=== PATIENT | male | born 1990 | race Caucasian/White ===

== ENCOUNTER 2022-05-23 08:56 | Emergency (ER) | payer BC, SELFPAY ==
[2022-05-23 09:03] VITALS: BP 137/67; PULSE 74; RESP 20; TEMP 36.7; O2SAT 98
--- NOTE | 2022-05-23 09:15 | DI.RAD_ITS ---
Exam(s) XR RIBS RT W PA LAT CHEST EXAM: XR RIBS RT W PA LAT CHEST CLINICAL HISTORY: right lower rib injury TECHNIQUE: COMPARISON: No exams were available for comparison FINDINGS: PA and lateral chest and 4 additional views of the right ribs were obtained. The heart is not enlarg ed. The lungs are clear. No pleural effusion. No pneumothorax. No rib fracture. IMPRESSION: Negative examination of the chest and right ribs. RADIATION DOSE DELIVERED: Total DLP
--- NOTE | 2022-05-23 09:20 | W.ED.GENAD ---
Discharge Plan Disposition Patient Disposition: HOME Condition: Stable Discharge Details Clinical Impression: Rib pain on right side Primary Care Provider: Unknown,Unknown ED Provider: Landen Brambila Home Meds and New Rx's Prescriptions: New diclofenac sodium 50 mg tablet,delayed release (DR/EC) 50 mg PO TID PRNQty: 15 0RF Held naproxen sodium [Aleve] 220 mg Capsule 440 mg PO PRN PRN Hold Instructions: until the prescription medication is finished Discharge Instructions Instructions: Chest Wall Pain (ED) Additional Instructions: If you have any new or significant worsening of symptoms please feel free to return the emergency department. Otherwise if you are not seeing signs of improvement in the next 1 to 2 weeks please follow-up with your primary care provider for reassessment. Referrals: Primary Care Provider [Outside] Medical Decision Making Patient presenting the emergency department for chief complaint of right rib pain. He states he was rolling over in bed and felt a pop in his right lower ribs. Since then he has had significant pain and discomfort to the right lower ribs. Patient denies any other symptoms beyond pain specifically exacerbated by movement. Physical exam is positive for tenderness to the 10th and 11th ribs on the right side otherwise exam is unremarkable. We will perform periodic imaging and place lidocaine patch on patient. Reviewed radiological imaging and radiologist interpretation of negative chest x-ray findings. Discussed with patient pain management control along with return and follow-up precautions. After discussion of diagnosis and plan of care patient has no further needs, questions, or concerns and states clear understanding to return to the emergency department for any worsening symptoms. This documentation was generated using [employer] dictation system, please disregard any oddities of phrase or misspellings. Imaging Data Radiologic Study: Imaging: X-Ray Radiologist's impression: FINDINGS: PA and lateral chest and 4 additional views of the right ribs were obtained. The heart is not enlarged. The lungs are clear. No pleural effusion. No pneumothorax. No rib fracture. IMPRESSION: Negative examination of the chest and right ribs. HPI General Mode of arrival: ambulatory. Date/Time Provider Initiated Documentation: 05/23/22 09:01. Limitations to Documentation: no limitations. Information obtained by: patient and RN notes reviewed. History of Present Illness 31 year old M presents to the emergency department with the chief complaint of Right rib pain, described as moderate, with intensity rated at 5. Quality is described as aching and sharp, and is localized to the chest and right. Patient reports no radiation. Patient started experiencing this day(s) (3) and it has been constant. Immobilization improves symptom(s), Movement worsens symptoms . Patient notes no other symptoms.. Patient did receive the following treatments prior to arrival, none Related Data Home Medications Medication Instructions Recorded Confirmed diclofenac sodium 50 mg 50 mg PO TID PRN #15 tabs 05/23/22 tablet,delayed release naproxen sodium 220 mg capsule 440 mg PO PRN PRN 05/23/22 05/23/22 (Aleve) Previous Rx's Medication Instructions Recorded diclofenac sodium 50 mg 50 mg PO TID PRN #15 tabs 05/23/22 tablet,delayed release Allergies Allergy/AdvReac Type Severity Reaction Status Date / Time amoxicillin AdvReac Intermediate Hives Unverified 05/23/22 09:08 Sulfa (Sulfonamide AdvReac Intermediate Hives Unverified 05/23/22 09:08 Antibiotics) General Stated Complaint: Chest/Rib DARNELL: 4 Review of Systems Constitutional Constitutional: Denies chills, Denies fever(s) and Denies poor appetite ENT Ears, Nose, Mouth, and Throat: Denies sore throat and Denies throat swelling Cardiovascular Cardiovascular: Denies chest pain and Denies dyspnea Respiratory Respiratory: Reports as per HPI, Denies chest congestion, Denies cough, Reports pain on inspiration, Reports pain with cough and Denies dyspnea Gastrointestinal Gastrointestinal: Denies abdominal pain, Denies nausea and Denies vomiting Musculoskeletal Musculoskeletal: Reports as per HPI Integumentary/Breasts Skin/Breast: Denies unusual bruising and Denies wounds Neurologic Neurologic: Denies sensory deficit Allergic/Immunologic Allergic/Immunologic: Denies throat swelling PFSH All Active Problems (Updated 05/23/22 @ 10:07 by Landen Brambila NP) Rib pain on right side (Acute) Social History Smoking/Tobacco Use Status: Never Smoking risk assessment performed?: Yes Drug use: Never Substance use type: does not use Do you feel safe at home: Yes Do you feel safe in your relationship?: Yes Exam Const General: cooperative, no acute distress and not ill appearing Orientation: alert, awake and oriented x3 Chest Chest: normal inspection of the chest, localized rib tenderness with anteroposterior compression right anterior-axillary line involving the 10th rib and involving the 11th rib, tenderness rib right involving the 10th rib and involving the 11th rib and No rash Resp Effort & Inspection: normal respiratory effort, able to speak in complete sentences and no respiratory distress Auscultation: clear to auscultation bilaterally Cardio Rate: regular rate Rhythm: regular rhythm Heart Sounds: S1 normal and S2 normal GI Inspection: normal to inspection Skin General skin exam: no rashes or lesions noted Neuro General: patient alert, patient awake, patient oriented x3, moves all extremities and no focal motor deficits Sensory Exam: no sensory deficits noted Course Vital Signs Vital signs: Vital Signs Temperature 36.7 C 05/23/22 09:03 Pulse 74 05/23/22 09:03 Respiratory Rate 20 05/23/22 09:03 Blood Pressure 137/67 05/23/22 09:03 Pulse Oximetry 98 05/23/22 09:03 Temperature 36.7 C 05/23/22 09:03 Temperature Source Temporal Artery Scan 05/23/22 09:03 Pulse 74 05/23/22 09:03 Respiratory Rate 20 05/23/22 09:03 Respiratory Effort 05/23/22 09:08 Blood Pressure 137/67 05/23/22 09:03 Blood Pressure Position Sitting 05/23/22 09:03 Pulse Oximetry 98 05/23/22 09:03 Oxygen Delivery Method Room Air 05/23/22 09:03 Oxygen Flow Rate 0 05/23/22 09:03 Pain Level 5 05/23/22 09:03
[2022-05-23] MEDS: Lidocaine 5% Patch 1 PATCH TP (09:43)
== END 2022-05-23 10:25 | disposition home or self-care (01) ==
PROVIDERS: Emergency Provider Nurse Practitioner Family
DX: G89.11 Acute pain due to trauma (principal); R07.81 Pleurodynia; X50.9XXA Other and unspecified overexertion or strenuous movements or postures, initial encounter
CPT/HCPCS: 99284; 71046; 71100